=== PATIENT | male | born 1965 | race Caucasian/White ===

== ENCOUNTER 2016-07-21 19:23 | Emergency (ER) | payer OTHER ==
[~2016-07-21] VITALS: Ht 175.3 cm; Wt 86.4 kg
[~2016-07-21 19:23] MED LIST: HYDR-4003 PO; LIDO700A6 TP; NAPR500T PO; NOMED
[2016-07-21 19:31] VITALS: BP 141/92; PULSE 139; RESP 22; O2SAT 98
--- NOTE | 2016-07-21 20:58 | DRSVH ---
PROCEDURE: X-RAY CHEST ONE VIEW, PORTABLE ([id number]) INDICATIONS: cough TECHNIQUE: One view of the chest was acquired. COMPARISON: None. FINDINGS: Surgical changes and devices: None. Lungs and pleura: Mild radiopacities are present at the left lung base. No pleural effusion or pneumo thorax. Mediastinum: Mediastinal contours appear normal. Heart size is normal. Bones and chest wall: No suspicious bony lesions. Overlying soft tissues appear unremarkable. IMPRESSION: Mild left basilar radiopacity suspicious for aspiration/infection. Lateral view may be he lpful to further localize findings if clinically indicated. Dictated by: Lorena Aguilar M.D. on 07/21/2016 at 20:56 Approved by: Lorena Aguilar M.D. on 07/21/2016 at 20:56
[2016-07-21 21:05] LABS: BASOPHILS % (AUTO) 0.1 % (0-3); EOSINOPHILS % (AUTO) 0.1 % (0-5); MONOCYTES % (AUTO) 6.7 % (4-12); Mean Corpuscular Volume 84.1 fL (81-100); NEUTROPHILS % (AUTO) 86.6 % (40-74); Platelet Count 237 bil/L (150-400)
[2016-07-21 21:24] LABS: Magnesium 1.8 mg/dL (1.6-2.6)
--- NOTE | 2016-07-21 22:18 | ED.REPORT ---
HPI-Dyspnea / Wheezing Date of Service Jul 21, 2016 ED Provider: Suman Peralta MD Patient is a 50 year old male who presents to the ED complaining of a persistent cough and chest pressure that began 4-5 days ago. Patient reports feeling fatigued and is found to be febrile in the ED at 40.2C. Patient states that his cough and chest pain are worse with deep breathing and laying down flat. He reports feeling a "gurgle" in his chest. His cough is so forceful that it causes his head to hurt. Patient reports being unable to sleep last night due to his symptoms and that he had to stay home from work. The patient denies smoking cigarettes or marijuana. Patient typically drinks 1-2 beers per day, but has not had anything to drink since becoming ill. Nursing Notes Stated Complaint: FLU SYMPTOMS Chief Complaint: FLU/Cold Symptoms Nursing Notes Reviewed: Yes Allergies: Coded Allergies: No Known Allergies (Unverified , 07/21/16) Scheduled Lidocaine (Lidoderm) 700 Mg Adh..patch 1 PATCH TP UD Scheduled PRN Hydrocodone-Acetaminophen 5-325 mg (Hydrocodone-Acetaminophen 5-325 mg) 1 Each Tablet 1 TABLET PO TID PRN PRN For Pain Naproxen (Naprosyn) 500 Mg Tablet 500 MG PO BID PRN PRN For Pain Miscellaneous Medications No Historical Medication (No Historical Medication) Ea General Time Seen by MD: 22:17 Chief Complaint Chest pain, Cough Hx Obtained From: Patient Arrived By: Walk-in Sudden in Onset?: No Onset Occurred: 5 days ago Symptom Duration: Since onset Location: : Chest left: Chest right Quality: Painful, Pleuritic, Pressure Severity: Current: Moderate Severity: Maximum: Moderate Recent Healthcare: No recent doctor visit, No recent hospitalization Similar Sx Previous: No Past Medical History Past Medical History LLE KALI, 1980 Smoking History Never Smoker Social History Alcohol Use: 1-3 per day Drug Use: Denies drug use Other Social History: Good social support, Local resident Ambulatory Status Independent Review of Systems Constitutional: Reports: Fatigue, Fever Respiratory: Reports: Non-productive cough, Pleuritic pain, Denies: Shortness of breath Cardiovascular: Reports: Chest pain, Denies: Palpitations Musculoskeletal: Reports: Myalgia Complete sys rev & neg: except as marked. Neurologic: Reports: Headache Physical Exam Initial Vital Signs Vital Signs (First) Date Time Temp Pulse Resp B/P Pulse Ox O2 Delivery O2 Flow Rate FiO2 07/21/16 19:31 40.2 139 22 141/92 98 Room Air Initial VS: Reviewed, Vital signs abnormal Head / Eyes: Atraumatic, Normocephalic, PERRL ENT: Conjunctiva normal, No scleral icterus Abdomen / GI: Soft, Non-tender Extremities: Vascular intact, Neuro intact, No swelling Skin: Warm, Dry, No cyanosis Neurologic: Alert, Oriented, Nonfocal Psychiatric: Mood/affect normal, Behavior normal, Normal thought content General/Constitutional: Awake, Alert, No acute distress Neck: Supple, No adenopathy Respiratory / Chest: No rales Diminished Breath Sounds: Positive: Decreased L (base) Wheezing / Retractions: Positive: Wheezing expiratory (with cough) Rales / Rhonchi: Positive: Rhonchi diffuse deep breathing causes cough Cardiovascular: Regular rhythm, Heart sounds NL, No gallop, No murmurs, No rubs Heart Rate / Rhythm: Positive: Tachycardia Interpretation & Diagnostics Interpretation & Diagnostics: NEGATIVE FOR INFLUENZA TYPE A AND B Lab Results Interpretation Result Diagram: 07/21/16204907/21/162049 Test 07/21/16 20:50 White Blood Count 13.8th/mm3 (3.8-10.1) Red Blood Count 5.42mil/mm3 (4.40-5.80) Hemoglobin 15.7g/dL (13.8-17.2) Hematocrit 45.6% (41.0-50.0) Mean Corpuscular Volume 84.1fL (81-100) Mean Corpuscular Hemoglobin 29.0pg (27.0-35.0) Mean Corpuscular Hemoglobin Concent 34.4% (32.0-37.0) Red Cell Distribution Width 14.4% (12.3-15.4) Platelet Count 237bil/L (150-400) Neutrophils (%) (Auto) 86.6% (40-74) Lymphocytes (%) (Auto) 6.3% (14-46) Monocytes (%) (Auto) 6.7% (4-12) Eosinophils (%) (Auto) 0.1% (0-5) Basophils (%) (Auto) 0.1% (0-3) Sodium Level 136mEq/L (134-144) Potassium Level 3.9mEq/L (3.5-5.2) Chloride Level 97mEq/L (97-108) Carbon Dioxide Level 21mmol/L (18-29) Blood Urea Nitrogen 15mg/dL (6-24) Creatinine 1.08mg/dL (0.76-1.27) Estimat Glomerular Filtration Rate 77mL/min (>59) Glucose Level 134mg/dL (60-99) Calcium Level 9.0mg/dL (8.5-10.1) Magnesium Level 1.8mg/dL (1.6-2.6) Total Bilirubin 2.4mg/dL (0.0-1.2) Aspartate Amino Transf (AST/SGOT) 20U/L (0-50) Alanine Aminotransferase (ALT/SGPT) 23U/L (0-44) Alkaline Phosphatase 199U/L (25-150) Troponin T 0.010ug/L (0.0-0.011) Total Protein 7.3g/dL (6.4-8.4) Albumin 4.2g/dL (3.4-5.0) Hold Hoover Top Tube Received (Received) Lab Results Interpretation: Elevated white blood count, mildly elevated nonfasting glucose ECG Interpretation ECG Interpretation: Sinus tachycardia, Rate 115 Time: 00:10 Interpreted by: ED physician Normal ECG Interpretation: No acute ischemic changes X-Ray Chest Interpretation Chest Xray Interpretation: IMPRESSION: Mild left basilar radiopacity suspicious for aspiration/infection. Lateral view may be helpful to further localize findings if clinically indicated. Dictated by: Lorena Aguilar M.D. on 07/21/2016 at 20:56 Approved by: Lorena Aguilar M.D. on 07/21/2016 at 20:56 Interpretation / Wet Read by: Interpret - Radiologist Re-Eval/Medical Decision Med Decision/Clinical Course 50-year-old male found to have pneumonia. IV was placed. He was hydrated and given first doses of antibiotics IV. He was discharged home with azithromycin. Source of Hx: Old records Re-Evaluation/Progress #1: Time of Eval: 23:47 Re-Evaluation/Progress Note: Rechecked the patient. He will be given his first dose of antibiotics in the ED. He reports a severe headache. Re-Evaluation/Progress #2: Time of Eval: 01:31 Re-Evaluation/Progress Note: Patient feels much improved. Patient understands and agrees with the plan to be discharged home following antibiotics. Discharge instructions and follow-up discussed. All questions were addressed. Return to the ED warnings given. Counseled Regarding: Diagnosis, Lab results, Need for follow-up, When/why to return to ED Discharge & Departure Impression: Primary Impression: Pneumonia Pneumonia type: due to unspecified organism Laterality: left Lung location : lower lobe of lung Qualified Code: J18.9 - Pneumonia, unspecified organism Disposition: Home Discharge Condition All VS Reviewed: Yes Condition: Stable Patient Instructions: Community-acquired Pneumonia (ED) Additional Instructions: You received Rocephin and azithromycin IV in the emergency room. Continue the azithromycin 250 mg daily until gone. Oxycodone/acetaminophen 5/325, one or 2 every 4-6 hours as needed for severe pain or cough, #10 dispensed. Drink plenty of fluids. Get plenty of rest. Follow-up with your regular doctor as needed for persistent symptoms.. Scribe Attestation Portions of this note were transcribed by Angelina Del Real. I, Dr. Peralta personally performed the history, physical exam and medical decision-making; I reviewed and confirmed the accuracy of the information in the transcribed note. Signed by: Marianne Gallardo, 07/22/2016 0211 Suman Peralta MD Jul 21, 2016 22:18 Angelina Del Real Jul 21, 2016 22:27
[2016-07-21] MEDS ORDERED: Albuterol 2.5 mg/3 mL Inhalation Solution NEB ONE (22:25)
[2016-07-21] MEDS ORDERED: _Azithromycin 250 mg Tablet PO SCH (22:25)
[2016-07-21] MEDS ORDERED: Albuterol-Ipratropium 3 mL Inhalation Solution NEB ONE (22:25)
[2016-07-21 22:31] VITALS: PULSE 103; RESP 22; O2SAT 98
[2016-07-21] MEDS ORDERED: 0.9% Sodium Chloride 1,000 ML IV ONE (23:48)
[2016-07-21] MEDS ORDERED: cefTRIAXone Inj 2,000 MG in Dextrose 5% Minibag Plus 50 ML IV ONE (23:50)
[2016-07-21] MEDS ORDERED: Azithromycin Inj 500 MG in Dextrose 5% w/Vial Mate 250 ML IV ONE (23:50)
[2016-07-22 00:48] VITALS: BP 116/56; PULSE 116; RESP 22; O2SAT 89
[2016-07-22] MEDS ORDERED: _oxyCODONE/APAP 5-325 mg Tablet PO PRN (01:35)
[2016-07-22 03:21] VITALS: BP 123/71; PULSE 109; RESP 20; O2SAT 93
== END 2016-07-22 03:21 | disposition home or self-care (01) ==
LOC: SED 19:23
DX: J18.9 Pneumonia, unspecified organism (principal)
CPT/HCPCS: 36415; 71010; 80053; 83735; 84484; 85025; 87040; 87804; 93005; 94664; 96361; 96365; 96367; 96375; 99285; J0456; J0696; J1885; J7030; J7613; J7620

== ENCOUNTER → 2017-02-05 | Day surgery (SDC) | payer OTHER ==
[~2017-02-05] VITALS: Ht 175.3 cm; Wt 95.0 kg
[~2017-02-05] MED LIST changes: +0.9% Sodium Chloride 1,000 ML IV PRN; +0.9% Sodium Chloride 1,000 ML IV SCH; +ALBU18HF INH; +CITA20TA11 PO; -HYDR-4003 PO; +IBUP200C PO; -LIDO700A6 TP; +Lactated Ringer's 1,000 ML IV ONE; +MULT-1018 PO; -NAPR500T PO; -NOMED; +OMEG-38 PO; +Sodium Chloride LOK Flush 10 mL Syringe IV PRN; +fentaNYL-PF 50 mCg/mL 2 mL Inj IVPUSH PRN; +sleep aid
[2017-02-05 07:27] VITALS: BP 125/89; PULSE 67; RESP 16; O2SAT 96
[2017-02-05 08:31] VITALS: BP 110/65; PULSE 66; RESP 14; O2SAT 96
[2017-02-05 08:41] VITALS: BP 124/66; PULSE 78; RESP 14; O2SAT 99
--- NOTE | 2017-02-05 08:59 | ENDO ---
[address] [address] ENDOSCOPY PROCEDURE PATIENT: LUZMA HINTON : 1965 MR#: [id number] ADMIT: 02/05/2017 JOB ID: [id number] DATE: 02/05/2017 PRIMARY PROVIDER: Nataliya Singh DO PROCEDURE: Colonoscopy with hot snare polypectomies. INDICATIONS: A 51-year-old male who reports for colon cancer screening. EQUIPMENT: PCF-H180AL SEDATION: 1. Versed 3 mg. 2. Fentanyl 75 mcg. COMPLICATIONS: none identified. BOWEL PREP: Very adequate. COMPLICATIONS: None identified. PROCEDURE INFO: After the risks and benefits were explained, written and verbal informed consent was obtained. The patient was brought into the endoscopy suite and placed into the left lateral decubitus position. Sedation was achieved using the above-stated medications with the addition of oxygen via nasal cannula. A digital rectal examination was accomplished. Mild internal hemorrhoids were noted. No other significant pathology. The scope was introduced into the rectum and advanced under direct visualization to cecum as identified by the appendiceal orifice and ileocecal valve. The scope was slowly withdrawn to carefully examine the mucosa for any defects or lesions. Retroflexed views were accomplished in the rectum. The colon was decompressed. The scope was removed the patient who tolerated the procedure well. FINDINGS: In the ascending colon there were two approximately 5 mm polyps removed with hot snare. In the sigmoid there were a couple of 6 mm polyps removed with hot snare. There was some diverticulosis in the sigmoid. Retroflexed views of the rectum were otherwise unremarkable. ENDOSCOPIC DIAGNOSES: 1. Multiple colon polyps. 2. Diverticulosis. 3. Hemorrhoids. RECOMMENDATIONS: 1. Await histopathology. 2. Repeat colonoscopy three years.
--- NOTE | 2017-02-06 17:24 | PATH ---
SURGICAL PATHOLOGY Attending Physician:Cortney Chase CASE STATUS: Signed Out PATIENT NAME: LUZMA HINTON PID: [id number] : 1965 DATE COLLECTED:02/05/2017 19:11 SPECIMEN: Colon, Polyp CLINICAL HISTORY: 1). COLON POLYPS X 4 FINAL DIAGNOSIS: Colon, Polyps x4, Biopsies: Tubular adenoma in 2 of 4 fragments. Sessile serrated adenoma in 1 fragment. Hyperplastic polyp in 1 fragment. ICD10: D12.6 GROSS DESCRIPTION: The specimen is received in one formalin filled container labeled with the patient's name, sublabeled "colon polyps" and consists of portions of tissue which aggregate to 0.4 x 0.4 x 0.4 CM. The specimen is entirely submitted in one cassette. Then one ICD-9 CODES: CPT CODES: 1: 69184 Electronically Signed Out Yoselin Velsáquez MD [facility] Pathology [facility] [address], [place] [address] Technical component performed at [facility], [facility] [address], [place], [address]
== END | disposition home or self-care (01) ==
LOC: END 12-11 00:19
PROVIDERS: ATTEND Internal Medicine Gastroenterology
DX: Z12.11 Encounter for screening for malignant neoplasm of colon (principal); D12.6 Benign neoplasm of colon, unspecified; K57.30 Diverticulosis of large intestine without perforation or abscess without bleeding; K64.8 Other hemorrhoids; F33.0 Major depressive disorder, recurrent, mild; F41.9 Anxiety disorder, unspecified; G47.00 Insomnia, unspecified
CPT/HCPCS: 45385; 99153; G0500; J2250; J3010; J7030